=== PATIENT | female | born 1960 | race Caucasian/White ===

== ENCOUNTER → 2017-01-13 | Outpatient (CLI) | payer MEDICAID, MEDICARE ==
[2017-01-13 10:37] LABS: ALT 41 U/L (9-52); AST 32 U/L (14-36); Alkaline Phosphatase 54 U/L (38-126); Anion Gap 9 mmol/L; Blood Urea Nitrogen 19 mg/dL (7-17); Calcium 9.3 mg/dL (8.4-10.2); Carbon Dioxide 29 mmol/L (22-30); Chloride 101 mmol/L (98-107); Glucose 84 mg/dL (74-99); HDL Cholesterol 74 mg/dL (40-60); Non-African American GFR(MDRD) >60 (>60 ml/min/1.73 sqM); Potassium 4.5 mmol/L (3.5-5.1); Sodium 139 mmol/L (137-145); Total Bilirubin 0.6 mg/dL (0.2-1.3); Total Protein 7.1 g/dL (6.3-8.2); Triglycerides 90 mg/dL (<150)
[2017-01-13 10:52] LABS: Cholesterol 359 mg/dL (<200)
== END | disposition home or self-care (01) ==
LOC: LABWHC1 09:08
PROVIDERS: ATTEND Internal Medicine Endocrinology, Diabetes & Metabolism
DX: E03.9 Hypothyroidism, unspecified (principal); E78.00 Pure hypercholesterolemia, unspecified
CPT/HCPCS: 36415; 80053; 80061; 83704; 84432; 84439; 84443; 86800

== ENCOUNTER → 2017-01-26 | Outpatient (CLI) | payer MEDICAID, MEDICARE | END | disposition home or self-care (01) | LOC: LABWHC1 08:41 | PROVIDERS: ATTEND Internal Medicine Endocrinology, Diabetes & Metabolism | DX: E89.0 Postprocedural hypothyroidism (principal); E55.9 Vitamin D deficiency, unspecified | CPT/HCPCS: 36415; 82306; 82310 ==

== ENCOUNTER → 2017-05-05 | Outpatient (CLI) | payer MEDICAID, MEDICARE ==
--- NOTE | 2017-05-06 08:51 | MM ---
Reason for exam: screening (asymptomatic). Last mammogram was performed 1 year ago. History: Patient is postmenopausal, has history of other cancer at age 46, and is nulliparous. Family history of breast cancer in sister at age 59 and breast cancer in maternal grandmother at age 50. Benign right US cyst aspiration of the right breast, December 21, 2007. Benign stereotactic core biopsy of the left breast, October 20, 2001. Physical Findings: A clinical breast exam by your physician is recommended on an annual basis and results should be correlated with mammographic findings. MG 3D Screening Mammo W/Cad Bilateral CC and MLO view(s) were taken. Prior study comparison: April 22, 2016, bilateral MG 3d screening mammo w/cad. January 23, 2015, left breast MG work up mamm w CAD LT. The breast tissue is heterogeneously dense. This may lower the sensitivity of mammography. Finding: There are stable typically benign punctate calcifications. Previous mammotome biopsy in the right and left breast. There is no discrete abnormality. No significant changes in finding since April 22, 2016 and January 23, 2015. ASSESSMENT: Benign, BI-RAD 2 RECOMMENDATION: Routine screening mammogram of both breasts in 1 year.
== END | disposition home or self-care (01) ==
LOC: RADMAMWWP 12:48
PROVIDERS: ATTEND Obstetrics & Gynecology
DX: Z12.31 Encounter for screening mammogram for malignant neoplasm of breast (principal); Z78.0 Asymptomatic menopausal state
CPT/HCPCS: 77063; G0202

== ENCOUNTER → 2017-05-26 | Outpatient (CLI) | payer MEDICAID, MEDICARE ==
[2017-05-26 10:50] LABS: ALT 34 U/L (9-52); AST 23 U/L (14-36); Alkaline Phosphatase 50 U/L (38-126); Anion Gap 11 mmol/L; Blood Urea Nitrogen 19 mg/dL (7-17); Carbon Dioxide 26 mmol/L (22-30); Chloride 100 mmol/L (98-107); Glucose 84 mg/dL (74-99); Non-African American GFR(MDRD) >60 (>60 ml/min/1.73 sqM); Potassium 3.8 mmol/L (3.5-5.1); Sodium 137 mmol/L (137-145); Total Bilirubin 0.5 mg/dL (0.2-1.3); Total Protein 6.9 g/dL (6.3-8.2)
== END | disposition home or self-care (01) ==
LOC: LABWHC1 10:13
PROVIDERS: ATTEND Internal Medicine Endocrinology, Diabetes & Metabolism
DX: E55.9 Vitamin D deficiency, unspecified (principal); E89.0 Postprocedural hypothyroidism
CPT/HCPCS: 36415; 80053; 82306; 84439; 84443; 84481

== ENCOUNTER → 2017-10-27 | Outpatient (CLI) | payer MEDICAID, MEDICARE ==
--- NOTE | 2017-10-27 16:00 | BD ---
EXAMINATION TYPE: MG DEXA axial skeleton. DATE OF EXAM: 10/27/2017 COMPARISON: 2013 CLINICAL HISTORY: post menopausal Height: 5'5 Weight: 146 FRAX RISK QUESTIONS: Alcohol (3 or more units per day): no Family History (Parent hip fracture): no Glucocorticoids (More than 3mos): no (Ex: prednisone, prednisolone, methylprednisolone, dexamethasone, and hydrocortisone). History of Fracture in Adulthood: yes Secondary Osteoporosis: 1. Type 1 Diabetes: no 2. Hyperthyroidism: no 3. Menopause before 45: no 4. Malnutrition: no 5. Chronic liver disease: no Rheumatoid Arthritis: no Current Tobacco Use: no RISK FACTORS HISTORY OF: Diet low in dairy products/other sources of calcium: Postmenopausal woman: MEDICATIONS: Thyroid Medications: Which medication: Levothyroxine How Lon years Additional Medications: anti-depressant, generic ritalin Additional History: thyroid cancer 15 years ago EXAM MEASUREMENTS: Bone mineral densitometry was performed using the [employer]. Bone mineral density as measured about the Lumbar spine is: ----- L1-L4(G/cm2): 1.112 T Score Values are as follows: ----- L2: -0.8 ----- L3: -0.4 ----- L4: -0.4 ----- L1-L4: -0.6 Bone mineral density has: Decreased -2.0% since study of: 01/03/2014 Bone mineral density about the R hip (g/cm2): 0.973 Bone mineral density about the L hip (g/cm2): 0.952 T Score values are as follows: -----R Neck: -0.5 -----L Neck: -0.6 -----R Total: -0.5 -----L Total: -0.6 Bone mineral density has: Decreased -9.1% since study of: 01/03/2014 IMPRESSION: Normal (Values between +1 and -1 indicate normal bone mass). Consider repeating this study in 5 year s or sooner if there is some new clinical indication. NOTE: T-SCORE=SD OF THE YOUNG ADULT MEAN.
== END | disposition home or self-care (01) ==
LOC: RADBDWWP 15:32
PROVIDERS: ATTEND Internal Medicine Endocrinology, Diabetes & Metabolism
DX: Z78.0 Asymptomatic menopausal state (principal)
CPT/HCPCS: 77080

== ENCOUNTER → 2018-03-08 | Outpatient (CLI) | payer MEDICAID, MEDICARE ==
--- NOTE | 2018-03-08 11:25 | XR ---
EXAMINATION TYPE: XR cervical spine comp DATE OF EXAM: 03/08/2018 CLINICAL HISTORY: pain COMPARISON: NONE TECHNIQUE: Frontal, lateral, oblique, swimmers, and open mouth view of the cervical spine are obtaine d. FINDINGS: The cervical spine is visualized in its entirety from C1 thru the top of T1 level. It is s atisfactory in alignment without evidence of acute fracture or dislocation. The pre-vertebral soft t issue appears within normal limits. Moderate degenerative disc space narrowing and spondylosis at C3- C6 7. The C1-C2 articulation is unremarkable on the open mouth view. The oblique images are within n ormal limits. IMPRESSION: No acute fracture or dislocation is seen in the cervical spine.ICD 10 NO FRACTURE, INITI AL EVALUATION
--- NOTE | 2018-03-08 11:32 | XR ---
EXAMINATION TYPE: XR lumbosacral spine min 4V DATE OF EXAM: 03/08/2018 CLINICAL HISTORY: pain COMPARISON: NONE TECHNIQUE: Frontal, lateral, and oblique images of the lumbar spine are obtained. FINDINGS: There are 5 lumbar type vertebral bodies identified. The lumbar spine shows satisfactory alignment without evidence of acute fracture or dislocation. Vertebral body heights are within normal limits. Disc spaces are well preserved. The overlying soft tissue appears unremarkable. IMPRESSION: No acute fracture or dislocation is seen in the lumbar spine.ICD 10 NO FRACTURE, INITIAL EVALUATION
--- NOTE | 2018-03-08 16:03 | XR ---
EXAMINATION TYPE: XR hand complete RT DATE OF EXAM: 03/08/2018 CLINICAL HISTORY: Chronic hand pain. TECHNIQUE: Frontal, lateral and oblique images of the right hand are obtained. COMPARISON: None. FINDINGS: There is no acute fracture/dislocation evident in the right hand. There is spurring at the dorsal aspect fifth DIP joint. Remainder joint spaces are maintained. The overlying soft tissue appe ars unremarkable. IMPRESSION: As above.
== END | disposition home or self-care (01) ==
LOC: RADXRMAIN 10:30
PROVIDERS: ATTEND Internal Medicine Endocrinology, Diabetes & Metabolism
DX: M77.9 Enthesopathy, unspecified (principal); M54.9 Dorsalgia, unspecified; M54.2 Cervicalgia
CPT/HCPCS: 72050; 72110

== ENCOUNTER → 2018-03-09 | Outpatient (CLI) | payer MEDICAID, MEDICARE ==
--- NOTE | 2018-03-10 10:15 | ECHOF ---
Referral Reason:R01.0 Cardiac murmur, unspecified MEASUREMENTS -------- HEIGHT: 165.1 cm WEIGHT: 68.0 kg BP: 123/61 RVIDd: 2.6 cm (< 3.3) IVSd: 0.9 cm (0.6 - 1.1) LVIDd: 3.1 cm (3.9 - 5.3) LVPWd: 0.9 cm (0.6 - 1.1) IVSs: 1.3 cm LVIDs: 2.2 cm LVPWs: 1.2 cm LAESV Index (A-L): 20.96 ml/m Ao Diam: 2.7 cm (2.0 - 3.7) AV Cusp: 1.7 cm (1.5 - 2.6) LA Diam: 2.8 cm (2.7 - 3.8) MV EXCURSION: 15.510 mm (> 18.000) MV EF SLOPE: 55 mm/s (70 - 150) EPSS: 0.4 cm MV E David: 0.78 m/s MV DecT: 225 ms MV A David: 0.64 m/s MV E/A Ratio: 1.22 RAP: 5.00 mmHg RVSP: 20.73 mmHg FINDINGS -------- Sinus rhythm. This was a technically good study. The left ventricular size is normal. Left ventricular wall thickness is normal. Overall left vent ricular systolic function is normal with, an EF between 55 - 60 %. The right ventricle is normal in size and function. Normal LA size by volume 22+/-6 ml/m2. RA appears enlarged. There is mild aortic valve sclerosis. There is no evidence of aortic regurgitation. There is no e vidence of aortic stenosis. The mitral valve leaflets are mildly thickened. There is trace to mild mitral regurgitation. Mild tricuspid regurgitation present. Right ventricular systolic pressure is normal at < 35 mmHg. There is no evidence of pulmonary hypertension. The pulmonic valve was not well visualized. The aortic root size is normal. Normal inferior vena cava with normal inspiratory collapse consistent with estimated right atrial pre ssure of 5 mmHg. There is no pericardial effusion. CONCLUSIONS -------- 1. Sinus rhythm. 2. This was a technically good study. 3. The left ventricular size is normal. 4. Left ventricular wall thickness is normal. 5. Overall left ventricular systolic function is normal with, an EF between 55 - 60 %. 6. Normal LA size by volume 22+/-6 ml/m2. 7. RA appears enlarged. 8. There is mild aortic valve sclerosis. 9. The mitral valve leaflets are mildly thickened. 10. There is trace to mild mitral regurgitation. 11. Mild tricuspid regurgitation present. 12. Right ventricular systolic pressure is normal at < 35 mmHg. 13. There is no evidence of pulmonary hypertension. 14. The pulmonic valve was not well visualized. 15. The aortic root size is normal. 16. There is no pericardial effusion. SALES RECRUITING COORDINATOR: Praveen Davies RDCS
== END ==
LOC: RADECHMAIN 14:40
PROVIDERS: ATTEND Family Medicine
DX: I08.1 Rheumatic disorders of both mitral and tricuspid valves (principal)
CPT/HCPCS: 93306

== ENCOUNTER → 2018-05-19 | Outpatient (CLI) | payer MEDICAID, MEDICARE ==
[2018-05-19 10:06] LABS: Anion Gap 7 mmol/L; Blood Urea Nitrogen 19 mg/dL (7-17); Calcium 9.2 mg/dL (8.4-10.2); Carbon Dioxide 30 mmol/L (22-30); Chloride 103 mmol/L (98-107); Cholesterol 310 mg/dL (<200); Glucose 92 mg/dL (74-99); HDL Cholesterol 80 mg/dL (40-60); LDL Cholesterol,Calculated 219 mg/dL (0-99); Potassium 4.8 mmol/L (3.5-5.1); Sodium 140 mmol/L (137-145); Triglycerides 55 mg/dL (<150)
[2018-05-19 10:22] LABS: T4, Free (Free Thyroxine) 0.57 ng/dL (0.78-2.19)
[2018-05-19 17:15] LABS: Vitamin D 25 Hydroxy 46.9 ng/mL (30.0-100.0)
[2018-05-19 19:27] LABS: Thyroglobulin <0.20 ng/mL (1.60-59.90)
== END | disposition home or self-care (01) ==
LOC: LABWHC1 07:34
PROVIDERS: ATTEND Internal Medicine Endocrinology, Diabetes & Metabolism
DX: C73 Malignant neoplasm of thyroid gland (principal); E55.9 Vitamin D deficiency, unspecified; E78.5 Hyperlipidemia, unspecified; E89.0 Postprocedural hypothyroidism
CPT/HCPCS: 36415; 80048; 80061; 82306; 84432; 84439; 84443; 84481; 86800

== ENCOUNTER → 2018-07-19 | Outpatient (CLI) | payer MEDICAID, MEDICARE ==
[2018-07-20 05:21] LABS: T4, Free (Free Thyroxine) 0.8 ng/dL (0.80-1.80)
== END | disposition home or self-care (01) ==
LOC: LABWHC1 16:37
PROVIDERS: ATTEND Internal Medicine Endocrinology, Diabetes & Metabolism
DX: E55.9 Vitamin D deficiency, unspecified (principal); C73 Malignant neoplasm of thyroid gland
CPT/HCPCS: 36415; 82306; 82310; 84439; 84443; 84481

== ENCOUNTER → 2018-12-28 | Outpatient (CLI) | payer MEDICAID, MEDICARE ==
--- NOTE | 2018-12-29 09:48 | MM ---
Reason for exam: screening (asymptomatic). Last mammogram was performed 1 year and 8 months ago. History: Patient is postmenopausal, has history of other cancer at age 46, and is nulliparous. Family history of breast cancer in sister at age 59 and breast cancer in maternal grandmother at age 50. Benign right US cyst aspiration of the right breast, December 21, 2007. Benign stereotactic core biopsy of the left breast, October 20, 2001. Physical Findings: A clinical breast exam by your physician is recommended on an annual basis and results should be correlated with mammographic findings. MG 3D Screening Mammo W/Cad Bilateral CC and MLO view(s) were taken. Prior study comparison: May 05, 2017, bilateral MG 3d screening mammo w/cad. April 22, 2016, bilateral MG 3d screening mammo w/cad. The breast tissue is heterogeneously dense. This may lower the sensitivity of mammography. There are benign appearing round calcifications bilaterally. Previous mammotome biopsy in the right and left breast. There is no discrete abnormality. ASSESSMENT: Benign, BI-RAD 2 RECOMMENDATION: Routine screening mammogram of both breasts in 1 year.
== END | disposition home or self-care (01) ==
LOC: RADMAMWWP 10:15
PROVIDERS: ATTEND Obstetrics & Gynecology
DX: Z12.31 Encounter for screening mammogram for malignant neoplasm of breast (principal)
CPT/HCPCS: 77063; 77067

== ENCOUNTER → 2018-12-28 | Outpatient (CLI) | payer MEDICAID, MEDICARE ==
[2018-12-28 17:40] LABS: Vitamin D 25 Hydroxy 69.4 ng/mL (30.0-100.0)
[2018-12-28 17:42] LABS: Calcium 9.3 mg/dL (8.7-10.3)
[2018-12-28 18:07] LABS: T4, Free (Free Thyroxine) 0.7 ng/dL (0.80-1.80)
[2018-12-28 18:54] LABS: Thyroglobulin <0.20 ng/mL (1.60-59.90)
== END | disposition home or self-care (01) ==
LOC: LABWHC1 10:20
PROVIDERS: ATTEND Internal Medicine Endocrinology, Diabetes & Metabolism
DX: C73 Malignant neoplasm of thyroid gland (principal)
CPT/HCPCS: 36415; 82306; 82310; 84432; 84439; 84443; 86800

== ENCOUNTER → 2020-01-12 | Outpatient (CLI) | payer MEDICAID, MEDICARE ==
[2020-01-12 15:21] LABS: African American GFR (CKD) 92.9 (60.0-200.0); Albumin 4.4 g/dL (3.80-4.90); Albumin/Globulin Ratio 2.59 (1.60-3.17); Anion Gap 8.5 mmol/L (4.00-12.00); Calcium 9.3 mg/dL (8.7-10.3); Carbon Dioxide 30.5 mmol/L (21.6-31.8); Chol/HDL Ratio 3.94; Globulin 1.7 g/dL (1.6-3.3); Non-African American GFR(CKD) 80.1 (60.0-200.0); Potassium 4.2 mmol/L (3.5-5.5); Total Bilirubin 0.6 mg/dL (0.2-1.2); Total Protein 6.1 g/dL (6.2-8.2)
[2020-01-12 16:20] LABS: T4, Free (Free Thyroxine) 0.6 ng/dL (0.80-1.80)
== END | disposition home or self-care (01) ==
LOC: LABWHC1 08:11
PROVIDERS: ATTEND Internal Medicine Endocrinology, Diabetes & Metabolism
DX: E89.0 Postprocedural hypothyroidism (principal); E78.5 Hyperlipidemia, unspecified; E55.9 Vitamin D deficiency, unspecified
CPT/HCPCS: 36415; 80053; 80061; 82306; 84439; 84443; 84481

== ENCOUNTER 2020-08-07 08:40 | Day surgery (SDC) | payer MEDICAID, OTHER ==
[2020-08-01 11:06] VITALS: BMI 27.4
[~2020-08-07 08:40] MED LIST: LACTATED RINGERS 1,000 ML IV SCH
[2020-08-07 09:27] VITALS: TEMP 99
[2020-08-07] MEDS ORDERED: LIDOCAINE 1% (10MG/ML) FOR IV START INTRADERMA ONE (09:36)
[2020-08-07] MEDS ORDERED: PROPOFOL 10 MG/ML 20 ML VIAL IV ONE (09:57)
[2020-08-07] MEDS ORDERED: LIDOCAINE 1% INJ 10MG/ML (20 ML MDV) ONE (09:57)
--- NOTE | 2020-08-07 10:14 | P.PCN ---
Date of Procedure: 08/07/20 Procedure(s) Performed: BRIEF HISTORY: Patient is a 59-year-old pleasant female scheduled for an elective colonoscopy as a part of screening for colorectal neoplasia. Her last colonoscopy was 10 years ago. PROCEDURE PERFORMED: Colonoscopy with biopsy. PREOPERATIVE DIAGNOSIS: Screening for colon cancer. IV sedation per Anesthesia. PROCEDURE: After informed consent was obtained, the patient, was brought into the endoscopy unit. IV sedation was administered by Anesthesia under continuous monitoring. Digital rectal examination was normal. Initially the Olympus CF-160 flexible video colonoscope was then inserted in the rectum, gradually advanced into the cecum without any difficulty. Careful examination was performed as the scope was gradually being withdrawn. Ileocecal valve and the appendiceal orifice were visualized and appeared normal. Prep was excellent. The base of cecum there were 2 polyps which measured 3 mm in size both of which were removed by cold biopsy. Mucosa of the cecum, ascending colon, transverse colon, descending colon, sigmoid colon, and rectum appeared normal. Retroflexion was performed in the rectum and no lesions were seen. The patient tolerated the procedure well. IMPRESSION: 3 mm 2 cecal polyps status post biopsy Rest of the colon appeared normal RECOMMENDATIONS: Findings of this examination were discussed with the patient as well as her family. She was advised to follow with the biopsy results. If the biopsy shows an adenoma she can have a repeat colonoscopy in 5 years
[2020-08-07 10:23] VITALS: RESP 16
[2020-08-07 10:45] VITALS: BP 121/84; PULSE 72
== END 2020-08-07 10:49 | disposition home or self-care (01) ==
LOC: ORWHC2ENDO 08:40
PROVIDERS: ATTEND Internal Medicine Gastroenterology
DX: Z12.11 Encounter for screening for malignant neoplasm of colon (principal); K63.5 Polyp of colon; E07.9 Disorder of thyroid, unspecified; F41.9 Anxiety disorder, unspecified; Z91.040 Latex allergy status; Z91.048 Other nonmedicinal substance allergy status; Z79.890 Hormone replacement therapy; Z79.899 Other long term (current) drug therapy
CPT/HCPCS: 88305; 45380; J2001; J2704

== ENCOUNTER → 2020-11-06 | Outpatient (CLI) | payer MEDICAID, OTHER ==
--- NOTE | 2020-11-06 12:01 | US ---
EXAMINATION TYPE: US transvaginal DATE OF EXAM: 11/06/2020 COMPARISON: NONE CLINICAL HISTORY: 60-year-old female Z80.41 Family HX malignant neoplasm ovary. Sister recently diagn osed with ovarian CA, G0, no symptoms TECHNIQUE: TV. Transvaginal sonographic images Date of LMP: 10YRS AGO FINDINGS: EXAM MEASUREMENTS: Uterus: 4.5 x 2.8 x 2.0 cm Endometrial Stripe: 0.2 cm Right Ovary: 2.0 x 1.4 x 1.5 cm Left Ovary: 1.6 x 1.0 x 1.1 cm 1. Uterus: Anteverted and otherwise wnl 2. Endometrium: wnl 3. Right Ovary: wnl 4. Left Ovary: wnl 5. Bilateral Adnexa: wnl 6. Posterior cul-de-sac: wnl IMPRESSION: Unremarkable sonographic examination of the pelvis.
== END | disposition home or self-care (01) ==
LOC: RADUSWWP 09:53
PROVIDERS: ATTEND Family Medicine
DX: Z12.73 Encounter for screening for malignant neoplasm of ovary (principal); Z80.41 Family history of malignant neoplasm of ovary
CPT/HCPCS: 76830

== ENCOUNTER → 2020-11-06 | Outpatient (CLI) | payer MEDICAID, OTHER ==
--- NOTE | 2020-11-08 14:00 | MM ---
Reason for exam: screening (asymptomatic). Last mammogram was performed 1 year and 10 months ago. History: Patient is postmenopausal, has history of other cancer at age 46, and is nulliparous. Family history of breast cancer in sister at age 59 and breast cancer in maternal grandmother at age 50. Benign right US cyst aspiration of the right breast, December 21, 2007. Benign stereotactic core biopsy of the left breast, October 20, 2001. Physical Findings: A clinical breast exam by your physician is recommended on an annual basis and results should be correlated with mammographic findings. MG 3D Screening Mammo W/Cad Bilateral CC and MLO view(s) were taken. Prior study comparison: December 28, 2018, bilateral MG 3d screening mammo w/cad. May 05, 2017, bilateral MG 3d screening mammo w/cad. The breast tissue is heterogeneously dense. This may lower the sensitivity of mammography. Previous mammotome biopsy in the left breast. No significant changes when compared with prior studies. ASSESSMENT: Benign, BI-RAD 2 RECOMMENDATION: Routine screening mammogram of both breasts in 1 year.
== END | disposition home or self-care (01) ==
LOC: RADMAMWWP 09:51
PROVIDERS: ATTEND Obstetrics & Gynecology
DX: Z12.31 Encounter for screening mammogram for malignant neoplasm of breast (principal)
CPT/HCPCS: 77063; 77067

== ENCOUNTER → 2021-01-01 | Outpatient (CLI) | payer MEDICAID, OTHER ==
[2021-01-02 05:50] LABS: African American GFR (CKD) 108.4 (60.0-200.0); Anion Gap 11.9 mmol/L (4.00-12.00); BUN/Creat Ratio 22.86 Ratio (12.00-20.00); Calcium 9.3 mg/dL (8.7-10.3); Carbon Dioxide 25.1 mmol/L (21.6-31.8); Chol/HDL Ratio 4.67; LDL Cholesterol,Calculated 189.4 mg/dL (0.0-131.0); Non-African American GFR(CKD) 93.5 (60.0-200.0); Potassium 4.5 mmol/L (3.5-5.5); VLDL Calculation 23.6 mg/dL (5.00-40.00)
[2021-01-02 06:23] LABS: T4, Free (Free Thyroxine) 0.7 ng/dL (0.80-1.80)
== END | disposition home or self-care (01) ==
LOC: LABWHC1 09:19
PROVIDERS: ATTEND Internal Medicine
DX: E89.0 Postprocedural hypothyroidism (principal); E78.5 Hyperlipidemia, unspecified; E55.9 Vitamin D deficiency, unspecified; M79.10 Myalgia, unspecified site
CPT/HCPCS: 36415; 80048; 80061; 82306; 84439; 84443

== ENCOUNTER → 2021-10-22 | Outpatient (CLI) | payer MEDICAID, OTHER ==
--- NOTE | 2021-10-22 14:04 | XR ---
EXAMINATION TYPE: XR knee complete LT DATE OF EXAM: 10/22/2021 CLINICAL HISTORY: pain TECHNIQUE: Three views of the left knee are obtained. COMPARISON: None. FINDINGS: There is no acute fracture/dislocation. The tri-compartment joint spaces appear within no rmal limits. The overlying soft tissue appears unremarkable. IMPRESSION: There is no acute fracture or dislocation ICD 10 NO FRACTURE, INITIAL EVALUATION
== END | disposition home or self-care (01) ==
LOC: RADXRMAIN 13:35
PROVIDERS: ATTEND Family Medicine
DX: M25.562 Pain in left knee (principal)

== ENCOUNTER → 2021-11-17 | Outpatient (CLI) | payer MEDICAID, OTHER ==
--- NOTE | 2021-11-18 04:41 | MR ---
EXAMINATION TYPE: MR knee LT wo con DATE OF EXAM: 11/17/2021 COMPARISON: None HISTORY: Left knee pain, injury 3 mos ago. Multiplanar multiecho imaging of the left knee without contrast. The anterior and posterior cruciate ligaments are intact. Patella is intact. There is a mild knee kourtney nt effusion. There are small areas of edema and degenerative cyst formation in the posterior aspect o f the tibial spines. The collateral ligaments appear intact. Lateral meniscus is intact. There is horizontal increased signal in the posterior horn of the medial meniscus without extension to the articular surface. IMPRESSION: Intrasubstance horizontal tear posterior horn of the medial meniscus. No evidence of ligamentous tear. Degenerative cyst formation and bone bruise involving the posterior intercondylar proximal tibia. No fractures seen. Mild knee joint effusion.
== END | disposition home or self-care (01) ==
LOC: RADMRIMAIN 21:33
PROVIDERS: ATTEND Family Medicine
DX: M23.222 Derangement of posterior horn of medial meniscus due to old tear or injury, left knee (principal); M85.662 Other cyst of bone, left lower leg

== ENCOUNTER → 2022-02-18 | Outpatient (CLI) | payer MEDICAID, OTHER ==
[2022-02-18 17:17] LABS: Chol/HDL Ratio 4.26 Ratio; VLDL Calculation 17.84 mg/dL (5.00-40.00)
== END | disposition home or self-care (01) ==
LOC: LABWHC1 09:46
PROVIDERS: ATTEND Internal Medicine
DX: E89.0 Postprocedural hypothyroidism (principal); E78.5 Hyperlipidemia, unspecified; E55.9 Vitamin D deficiency, unspecified
CPT/HCPCS: 36415; 80061; 82306; 84439; 84443

== ENCOUNTER → 2022-12-30 | Outpatient (CLI) | payer MEDICAID, OTHER ==
--- NOTE | 2022-12-30 14:21 | XR ---
EXAMINATION TYPE: XR cervical spine comp DATE OF EXAM: 12/30/2022 COMPARISON: 03/08/2018 HISTORY: Pain TECHNIQUE: 5 view cervical spine FINDINGS: Minimal spondylosis present with small anterior vertebral body spurs present C3-C6. Some sm all amount of posterior endplate spurring is present C3-4, C4-5, C5-6. Posterior spinal lamellar line is intact. Prevertebral space is normal There is disc space narrowing C3-4 through C6-7. Odontoid appears unremarkable. There is right forami nal stenosis C4-5. Some foraminal stenosis present C6-7. Moderate foraminal stenosis at C4-5 C5-6 is present. IMPRESSION: 1. Degenerative disc changes and some foraminal narrowing mid cervical spine discussed above
--- NOTE | 2022-12-30 14:22 | XR ---
EXAMINATION TYPE: XR foot complete bilateral DATE OF EXAM: 12/30/2022 COMPARISON: None HISTORY: Pain TECHNIQUE: Bilateral feet are examined in 3 projections each. FINDINGS: Left foot: No acute fracture or dislocation is evident. Soft tissues are normal. Plantar calcaneal he el spurs present. Right foot: No acute fracture or dislocation is evident. Soft tissues are normal. Plantar calcaneal h eel spurs present. IMPRESSION: 1. No acute osseous abnormalities bilateral feet. 2. Chronic bilateral anterior calcaneal heel spurs
--- NOTE | 2022-12-30 14:24 | XR ---
EXAMINATION TYPE: XR hand complete bilateral DATE OF EXAM: 12/30/2022 COMPARISON: 03/08/2018 right hand HISTORY: Bilateral hand pain TECHNIQUE: Bilateral hands are examined in 3 projections each. FINDINGS: Right hand: No acute fracture or dislocation is evident. Mild diffuse joint space narrowing is presen t. Soft tissues appear normal. Left hand: Mild diffuse joint space narrowing is present. No acute fracture or dislocation is evident . Soft tissues appear normal. IMPRESSION: 1. No acute osseous abnormality bilateral hands. 2. Mild diffuse degenerative joint changes
[2022-12-30 20:39] LABS: Basophils # (A) 0.04 X 10*3/uL (0.00-0.10); Basophils % (A) 0.6 %; Eosinophils # (A) 0.37 X 10*3/uL (0.04-0.35); Eosinophils % (A) 5.3 %; HGB 13.5 g/dL (12.0-15.0); Immature Grans, Automated 0.6 %; Lymphocytes # (A) 1.88 X 10*3/uL (0.90-5.00); Lymphocytes % (A) 26.9 %; MCH 28.2 pg (27.0-32.0); MCHC 32.9 g/dL (32.0-37.0); MCV 85.8 fL (80.0-97.0); Mean Platelet Volume 10.1 fL (9.5-12.2); Monocytes % (A) 8.6 %; NRBC Per 100 WBC 0 /100 WBCS (0.0-0.0); Neutrophils # (A) 4.06 X 10*3/uL (1.80-7.70); Platelet Count 372 X 10*3/uL (140-440); RBC 4.78 X 10*6/uL (4.10-5.20); RDW 12.9 % (11.5-14.5); WBC 6.99 X 10*3/uL (4.50-10.00)
[2022-12-30 21:08] LABS: ALT 29 U/L (8-44); AST 21 U/L (13-35); African American GFR (CKD) 96.3 (60.0-200.0); BUN/Creat Ratio 22.94 Ratio (12.00-20.00); Blood Urea Nitrogen 17.5 mg/dL (9.0-27.0); Calcium 9.7 mg/dL (8.7-10.3); Carbon Dioxide 27.9 mmol/L (20.0-27.5); Chloride 103 mmol/L (96-109); Creatine Kinase 99 U/L (26-186); Glucose 91 mg/dL (70-110); Non-African American GFR(CKD) 83.1 (60.0-200.0); Sodium 143 mmol/L (135-145); Uric Acid 3.6 mg/dL (2.9-7.7)
[2022-12-30 21:15] LABS: Erythrocyte Sedimentation Rate 4 mm/Hr (0-30)
[2022-12-30 21:32] LABS: C Reactive Protein <0.30 mg/dL (0.00-0.80); Rheumatoid Factor, Qnt <10 IU/mL (0-15)
[2022-12-31 01:00] LABS: Cyclic Citrull Pep IgG Unit <1.5 U/mL; Cyclic Citrullinated Pep IgG NEGATIVE (NEGATIVE)
[2022-12-31 10:27] LABS: HLA B27 NEGATIVE
[2022-12-31 11:37] LABS: Angiotensin-1 Converting Enz. 60 U/L (8-52)
== END | disposition home or self-care (01) ==
LOC: LABWHC1 13:32
PROVIDERS: ATTEND Internal Medicine Rheumatology
DX: M77.31 Calcaneal spur, right foot (principal); M77.32 Calcaneal spur, left foot; M13.0 Polyarthritis, unspecified; M79.642 Pain in left hand; M79.641 Pain in right hand; M47.812 Spondylosis without myelopathy or radiculopathy, cervical region; M48.02 Spinal stenosis, cervical region
CPT/HCPCS: 36415; 72050; 80048; 82164; 82306; 82550; 83520; 84439; 84443; 84450; 84460; 84550; 85025; 85652; 86038; 86140; 86200; 86431; 86812

== ENCOUNTER → 2023-03-17 | Outpatient (CLI) | payer MEDICAID, OTHER ==
[2023-03-17 16:28] LABS: Chol/HDL Ratio 4.25 Ratio; LDL Cholesterol,Calculated 186.3 mg/dL (0.0-131.0); T4, Free (Free Thyroxine) 0.64 ng/dL (0.80-1.80); VLDL Calculation 15.64 mg/dL (5.00-40.00)
== END | disposition home or self-care (01) ==
LOC: LABWHC1 07:52
PROVIDERS: ATTEND Internal Medicine
DX: E55.9 Vitamin D deficiency, unspecified (principal); E89.0 Postprocedural hypothyroidism; E78.5 Hyperlipidemia, unspecified; Z85.850 Personal history of malignant neoplasm of thyroid
CPT/HCPCS: 36415; 80061; 82306; 84432; 84439; 84443; 86800

== ENCOUNTER → 2023-05-12 | Outpatient (CLI) | payer MEDICAID, OTHER ==
--- NOTE | 2023-05-13 08:14 | MM ---
Reason for Exam: Screening (asymptomatic). Last screening mammogram was performed 12 month(s) ago. Patient History: Menarche at age 12. Patient has no children. Postmenopausal. Other cancer, age 46. 12/21/2007, Benign Cyst Aspiration on the right side. 10/20/2001, Benign Stereotactic Core Biopsy on the left side. Maternal grandmother had breast cancer, age 50. Sister had breast cancer, age 59. Risk Values: Theresa 5 year model risk: 3.6%. NCI Lifetime model risk: 14.9%. Prior Study Comparison: 12/28/2018 Bilateral Screening Mammogram, [facility]. 11/06/2020 Bilateral Screening Mammogram, [facility]. 05/06/2022 Bilateral MG 3D screening mammo w/cad, [facility]. Tissue Density: The breast tissue is heterogeneously dense. This may lower the sensitivity of mammography. Findings: Analyzed By CAD. Bilateral breast biopsy clip. There is no suspicious group of microcalcifications or new suspicious mass in either breast. Overall Assessment: Benign, BI-RAD 2 Management: Screening Mammogram of both breasts in [address] [facility] will attempt to contact patient to return for supplemental views and ultrasound if indicated. Patient should continue monthly self-breast exams. A clinical breast exam by your physician is recommended on an annual basis. This exam should not preclude additional follow-up of suspicious palpable abnormalities. Note on Theresa scores and lifetime risk: 1. A Theresa score greater than 3% is considered moderate risk. If this is the case, consider specialist referral to assess eligibility for a risk reducing agent. 2. If overall lifetime risk for the development of breast cancer is 20% or higher, the patient may qualify for future screening with alternating mammogram and breast MRI. Electronically signed and approved by: Teddy Godoy DO
== END | disposition home or self-care (01) ==
LOC: RADMAMWWP 11:42
PROVIDERS: ATTEND Obstetrics & Gynecology
DX: Z12.31 Encounter for screening mammogram for malignant neoplasm of breast (principal); Z78.0 Asymptomatic menopausal state; Z80.3 Family history of malignant neoplasm of breast
CPT/HCPCS: 77063; 77067

== ENCOUNTER → 2023-08-25 | Outpatient (CLI) | payer MEDICAID ==
--- NOTE | 2023-08-27 12:01 | BD ---
EXAMINATION TYPE: Axial Bone Density DATE OF EXAM: 08/25/2023 CLINICAL HISTORY: 62 years old Female. ICD-10 CODE: N95.1 MENOPAUSAL FEMALE CLIMACTERIC STATE Height: 64.2 in Weight: 161 lbs RISK FACTORS HISTORY OF: Active: yes Diet low in dairy products/other sources of calcium: yes Postmenopausal woman: age 47 MEDICATIONS: Thyroid Medications: yes Which medication: Levothyroxine How Lon+ years Additional Medications: vit d, anti depressant meds, Additional History: thyroid cancer with radiation EXAM MEASUREMENTS: Bone mineral densitometry was performed using the [employer] System. Bone mineral density as measured about the Lumbar spine is: ----- L1-L4(G/cm2): 1.079 T Score Values are as follows: ----- L1: -1.1 ----- L2: -1.4 ----- L3: -0.7 ----- L4: -0.1 ----- L1-L4: -0.8 Z Score Values are as follows: ----- L1: 0.1 ----- L2: -0.2 ----- L3: 0.5 ----- L4: 1.1 ----- L1-L4: 0.4 Bone mineral density has: Decreased -3.0% since study of: 10/27/2017 Bone mineral density about the R hip (g/cm2): 0.940 Bone mineral density about the L hip (g/cm2): 0.949 T Score values are as follows: -----R Neck: -0.7 -----L Neck: -0.6 -----R Total: -0.5 -----L Total: -0.5 Z Score values are as follows: -----R Neck: 0.5 -----L Neck: 0.6 -----R Total: 0.4 -----L Total: 0.5 Bone mineral density has: no change 0.0% since study of: 10/27/2017 FRAX%s: The graph provided illustrates a 7.4% chance for a major osteoporotic fx and a 0.4% chance fo r the hips probability for fx in 10 years time. IMPRESSION: Osteopenia (T Score between -2.5 and -1). There is slightly increased risk of fracture and the patient may be considered for treatment. Re-Screen 2-5 years. NOTE: T-SCORE=SD OF THE YOUNG ADULT MEAN.
== END | disposition home or self-care (01) ==
LOC: RADBDWWP 09:14
PROVIDERS: ATTEND Obstetrics & Gynecology
DX: M85.89 Other specified disorders of bone density and structure, multiple sites (principal); N95.1 Menopausal and female climacteric states
CPT/HCPCS: 77080

== ENCOUNTER 2023-09-08 09:52 | Day surgery (SDC) | payer MEDICAID, MEDICARE ==
[2023-09-03 13:02] VITALS: BMI 27.6
[~2023-09-08 09:52] MED LIST changes: +LIDOCAINE 1% (10MG/ML) FOR IV START INTRADERMA PRN
[2023-09-08] MEDS ORDERED: fentaNYL (PF) 50 MCG/ML 2 ML AMP ONE (11:02)
[2023-09-08] MEDS ORDERED: PROPOFOL 10 MG/ML 20 ML VIAL IV ONE (11:02)
[2023-09-08] MEDS ORDERED: LIDOCAINE 2% (PF) 20 MG/ML 5 ML VIAL ONE (11:02)
--- NOTE | 2023-09-08 11:27 | P.PCN ---
Date of Procedure: 09/08/23 Procedure(s) Performed: BRIEF HISTORY: Patient is a 62-year-old, pleasant, white female scheduled for an upper endoscopy as a part of evaluation of chronic heartburn and intermittent dysphagia to solids. PROCEDURE PERFORMED: Esophagogastroduodenoscopy with biopsy and dilation. PREOPERATIVE DIAGNOSIS: GERD and intermittent dysphagia to solids. IV sedation per anesthesia. PROCEDURE: After informed consent was obtained, the patient was brought into the endoscopy unit. IV sedation was administered by Anesthesia under continuous monitoring. Initially the Olympus GIF-140 video endoscope was inserted into the mouth. Esophagus intubated without any difficulty. It was gradually advanced into the stomach and duodenum and carefully examined. The bulb and the second part of the duodenum appeared normal. The scope at this time was withdrawn to the stomach, adequately insufflated with air, and upon careful examination, mucosa of the antrum, had mild gastritis and biopsies were done from this area. Mucosa of the body, cardia and the fundus appeared normal. The scope was then withdrawn into the esophagus. The GE junction was located at 39 cm from the incisors. There was a widely patent distal esophageal Schatzki's ring identified that was dilated using 18-20 mm TTS balloon in a sequential fashion for 30 seconds. There were superficial erosions noted at the GE junction consistent with LA grade B reflux esophagitis. The entire length of the esophagus appeared normal. The proximal cervical esophagus was carefully examined and appeared normal. Biopsies were done from the mid and distal esophagus and the patient tolerated the procedure well. IMPRESSION: 1. Small hiatal hernia and LA grade B reflux esophagitis. 2. Widely patent distal esophageal Schatzki's and status post balloon dilation using 18-20 mm TTS balloon as the scope at about 3. Mild antral gastritis. RECOMMENDATIONS: The findings of this examination were discussed with the patient as well as a family. She was advised to follow with the biopsy results. Recommend starting on Pepcid 20 mg twice daily and follow antireflux measures..
[2023-09-08 12:17] VITALS: BP 97/63; PULSE 65; RESP 16
== END 2023-09-08 12:17 | disposition home or self-care (01) ==
LOC: ORWHC2ENDO 09:52
PROVIDERS: ATTEND Internal Medicine Gastroenterology
DX: K29.50 Unspecified chronic gastritis without bleeding (principal); K22.2 Esophageal obstruction; K21.00 Gastro-esophageal reflux disease with esophagitis, without bleeding; K44.9 Diaphragmatic hernia without obstruction or gangrene; F41.9 Anxiety disorder, unspecified; F98.8 Other specified behavioral and emotional disorders with onset usually occurring in childhood and adolescence; Z79.899 Other long term (current) drug therapy; Z91.040 Latex allergy status; Z79.890 Hormone replacement therapy; Z98.890 Other specified postprocedural states
CPT/HCPCS: 43239; 43249; J3010; J2704; J2001; C1726; 88305

== ENCOUNTER → 2023-10-11 | Outpatient (CLI) | payer MEDICAID, MEDICARE ==
--- NOTE | 2023-10-11 11:56 | FL ---
EXAMINATION TYPE: FL barium swallow w video DATE OF EXAM: 10/11/2023 CLINICAL HISTORY: 62-year-old female R09.89, patient with previous history of thyroid cancer and two I-131 ablations. Patient with dry mouth, trouble swallowing, and sensation of sticking in the throat. Dysphagia. TECHNIQUE: Deglutition study is performed utilizing thin liquid barium, honey and nectar thick liqui d barium, barium thick applesauce, and barium coated cracker. Total fluoroscopy time 1 minute 2 seconds. Total images: None. Real-time fluoroscopy support was provided to speech pathology. Total DAP: 10 mGycm2. COMPARISON: None. FINDINGS: The oral and pharyngeal phases show satisfactory initiation and propagation with all modalities teste d. Normal mastication is seen with solid modalities tested. There is no evidence of penetration or aspiration with any modality tested. No significant pharyngeal residue was appreciated. IMPRESSION: Functional swallow. No penetration or aspiration. Please refer to speech therapist notes for further details if necessary.
== END | disposition home or self-care (01) ==
LOC: RADFLMAIN 11:17
PROVIDERS: ATTEND Family Medicine
DX: R13.10 Dysphagia, unspecified (principal); R09.89 Other specified symptoms and signs involving the circulatory and respiratory systems; R68.2 Dry mouth, unspecified; Z85.850 Personal history of malignant neoplasm of thyroid
CPT/HCPCS: 74230

== ENCOUNTER → 2024-04-10 | Outpatient (CLI) | payer BC ==
[2024-04-10 10:56] LABS: Blood Urea Nitrogen 19.6 mg/dL (9.0-27.0); Calcium 9.3 mg/dL (8.7-10.3); Carbon Dioxide 28.5 mmol/L (21.6-31.8); Chloride 101 mmol/L (96-109); Glucose 100 mg/dL (70-110); Potassium 4.1 mmol/L (3.5-5.5); Sodium 140 mmol/L (135-145); T4, Free (Free Thyroxine) 0.57 ng/dL (0.80-1.80)
== END | disposition home or self-care (01) ==
LOC: LABWHC1 07:48
PROVIDERS: ATTEND Internal Medicine
DX: E55.9 Vitamin D deficiency, unspecified (principal); E89.0 Postprocedural hypothyroidism
CPT/HCPCS: 36415; 80048; 82306; 84439; 84443

== ENCOUNTER → 2024-04-27 | Outpatient (CLI) | payer BC | END | disposition home or self-care (01) | LOC: LABWHC1 08:18 | PROVIDERS: ATTEND Family Medicine | DX: Z00.00 Encounter for general adult medical examination without abnormal findings (principal); R10.9 Unspecified abdominal pain; Z84.81 Family history of carrier of genetic disease | CPT/HCPCS: 36415; 80061; 82785; 83516; 86003 ==

== ENCOUNTER → 2024-08-15 | Outpatient (CLI) | payer BC ==
[2024-08-15 15:05] LABS: Chol/HDL Ratio 3.83 Ratio; LDL Cholesterol,Calculated 160.5 mg/dL (0.0-131.0); VLDL Calculation 18.34 mg/dL (5.00-40.00)
--- NOTE | 2024-08-15 15:35 | MM ---
Reason for Exam: Screening (asymptomatic). Last mammogram was performed 1 year(s) and 4 month(s) ago. Patient History: Menarche at age 12. Patient has no children. Postmenopausal. Other cancer, age 46. 12/21/2007, Benign Cyst Aspiration on the right side. 10/20/2001, Benign Stereotactic Core Biopsy on the left side. Maternal grandmother had breast cancer, age 50. Sister had breast cancer, age 59. Sister tested for BRCA1 outcome was negative. Risk Values: Theresa 5 year model risk: 3.7%. NCI Lifetime model risk: 14.4%. Prior Study Comparison: 11/06/2020 Bilateral Screening Mammogram, [facility]. 05/06/2022 Bilateral MG 3D screening mammo w/cad, [facility]. 05/12/2023 Bilateral MG 3D screening mammo w/cad, [facility]. Tissue Density: The breasts are heterogeneously dense, which may obscure small masses. Findings: Analyzed By CAD. A microclip on either side from prior biopsies. There is no suspicious group of microcalcifications or new suspicious mass in either breast. Overall Assessment: Negative, BI-RAD 1 Management: Screening Mammogram of both breasts in 1 year. See note below in regards to patient's increased 5 year Theresa score. Patient should continue monthly self-breast exams. A clinical breast exam by your physician is recommended on an annual basis. This exam should not preclude additional follow-up of suspicious palpable abnormalities. Note on Theresa scores and lifetime risk: 1. A Theresa score greater than 3% is considered moderate risk. If this is the case, consider specialist referral to assess eligibility for a risk reducing agent. 2. If overall lifetime risk for the development of breast cancer is 20% or higher, the patient may qualify for future screening with alternating mammogram and breast MRI. [facility], , 08/15/2024 3:32 PM. Electronically signed and approved by: Ace Anderson M.D. Radiologist
[2024-08-15 19:07] LABS: Clam IgE <0.10 kU/L; Codfish IgE <0.10 kU/L; Egg White IgE <0.10 kU/L; Peanut IgE <0.10 kU/L; Scallop IgE <0.10 kU/L; Shrimp IgE <0.10 kU/L; Soybean IgE <0.10 kU/L; Walnut IgE (Food) <0.10 kU/L
== END | disposition home or self-care (01) ==
LOC: RADMAMWWP 06:57
PROVIDERS: ATTEND Family Medicine
DX: Z12.31 Encounter for screening mammogram for malignant neoplasm of breast (principal); Z00.00 Encounter for general adult medical examination without abnormal findings; R10.9 Unspecified abdominal pain; Z84.81 Family history of carrier of genetic disease; Z78.0 Asymptomatic menopausal state; Z80.3 Family history of malignant neoplasm of breast; R92.333 Mammographic heterogeneous density, bilateral breasts
CPT/HCPCS: 77063; 77067; 80061; 82785; 83516; 86003